=== PATIENT | female | born 2000 | race African-American/Black ===

== ENCOUNTER 2022-02-06 01:35 | Day surgery (SDC) | payer BC, SELFPAY ==
--- NOTE | 2022-01-30 16:32 | SUR.PREOP ---
Report to the Outpatient Waiting Room, entrance under the green pavilion located off [facility], at time 0600 on date 02/06/22. OR Time: 0730. - You and your visitor will be asked a series of questions to screen for COVID 19 for your protection. - Only one visitor is allowed at this time. - The patient visitor is requested to leave or wait in car when not with patient. - A mask is required within the hospital. Patients may have clear liquids (water, carbonated beverages, clear teas, apple juice) until 3 hours prior to surgery with a maximum of 20 ounces. - NO CLEAR LIQUIDS AFTER 0430 - No food from midnight until time of surgery - Infants may have breast milk until 4 hours before surgery, infant formula 6 hours prior to surgery. - Children will be allowed to drink immediately following surgery. If applicable, please bring a bottle or sippy cup to assist with drinking. Juice, water, soda, and popsicles are readily available. For infants on formula, please bring formula the day of surgery. Pacifiers are allowed. Take the following medications with a SIP of water the morning of surgery: Medications to discontinue per physician Date to take last dose Please no make-up, nail turkish, hairspray, perfume, deodorant, or body powder the day of surgery. No jewelry (including any body piercings) or valuables the day of surgery, leave them at home. Please take a shower or bath the night before, or the morning of, surgery with an antibacterial soap. Wear comfortable, loose fitting clothing. Children are encouraged to wear pajamas. - Jewelry must be removed prior to entering the operating room. Rings and piercings that are not removed may be cut off. - The hospital will not accept responsibility for valuables. - Please leave all valuables, including medications, at home the day of surgery. If you are going home after surgery, a licensed stock driver must drive you home. - NO public transportation without another adult. - We recommend that an adult stay with you for 24 hours following discharge. - We also recommend that you do not drive, make important decision, drink alcoholic beverages, or take any drugs that were not prescribed by your health care provider for at least 24 hours after your discharge time. For Pediatric surgeries, we recommend two adults accompany the child home (only one inside the building at this time). Follow any additional instructions given to you from your surgeon. If you or anyone in your household have experienced Covid symptoms in the past week, please notify your surgeon or the nurse liaison at the phone number below for possible testing. Telephone instructions given to TITI PADILLA and asked if any additional questions and then verbalized understanding. Patient advised to call surgeon office or pre surgery nurse liaison [phone] if any additional questions.
[2022-01-30 16:42] VITALS: BMI 21.9
[2022-02-06] MEDS: ACETAMINOPHEN 500 MG TABLET 1000 MG PO (06:17)
[2022-02-06 06:27] VITALS: BP 112/69; PULSE 72; RESP 16; TEMP 37.1; O2SAT 100; BMI 20.8
[2022-02-06] MEDS: LACTATED RINGERS 1,000 ML 30 ML IV CONT (06:50)
--- NOTE | 2022-02-06 06:59 | WPDANESEPPF ---
Anes - Initial Pre Proc Eval Procedure: Operation Date: 02/06/22 07:30 Proposed Procedures p Loop Electrical Excision Procedure - Duane Rosas MD Date/Time: 02/06/22 06:59 Surgeon: Duane Rosas MD Pre Op Diagnosis: DEANNA 2 Patient Data Age: 21 Gender: F Height: 1.63 m Weight: 55 kg Last Vital Signs Temp 37.1 C 02/06/22 06:27 Pulse 72 02/06/22 06:27 Resp 16 02/06/22 06:27 BP 112/69 02/06/22 06:27 Pulse Ox 100 02/06/22 06:27 Allergies Allergy/AdvReac Type Severity Reaction Status Date / Time No Known Allergies Allergy Verified 02/06/22 06:07 Home Medications Medication Instructions Recorded Confirmed Type ergocalciferol (vitamin D2) 1,250 1,250 mcg PO WEEKLY #12 cap 12/29/21 01/30/22 Rx mcg (50,000 unit) capsule Patient hx anesthesia problems: none Family hx anesthesia problems: none Results Review: All pre-operative results and documents have been reviewed as part of the pre-operative evaluation. [facility] Past Medical History Medical History Anxiety Depression Social History Social History Years smoked: 5 Smoking status: Current every day smoker Tobacco type: cigarettes and e-cigarettes/vaping Alcohol intake: current Substance use: current Substance use type: marijuana Other substance usage details: MARIJUANA DAILY Spiritual care concerns: No Anes - Eval Final PreProcedure Day of Procedure 02/06/22 06:59 Patient weight: normal Heart: regular rate and rhythm Lungs: clear to auscultation Airway: Mallampati scale class 1 Neurological: alert and oriented Last oral intake: >/= 8 hours ASA classification: II Emergent: no Anesthetic plan: proceed Anesthesia type and monitoring: general GIVS and standard monitoring Results Review: All pre-operative results and documents have been reviewed as part of the pre-operative evaluation. Informed Consent: The patient's anesthetic plan and its attendant risks and benefits were discussed with the patient/family/POA. Questions were solicited and answers provided to the satisfaction of the patient/family/POA.
--- NOTE | 2022-02-06 07:16 | PM.IMHP ---
H&P: HPI History of Present Illness Date/Time: 02/06/22 07:16 Patient scheduled for LEEP due colposcopy biopsy with ECC CIN2. Cervical biopsy CIN1. Chief Complaint: CIN2 on ECC Review of Systems Review of Systems: All systems reviewed & are unremarkable except as noted in HPI and below Cardiovascular: Cardiovascular: Reports no additional cardiovascular complaints, Denies chest pain and Denies dyspnea Respiratory: Respiratory: Reports no additional respiratory complaints and Denies dyspnea Gastrointestinal: Gastrointestinal: Reports abdominal pain, Denies change in bowel habits, Denies diarrhea, Denies nausea and Denies vomiting Genitourinary: Genitourinary: Reports pelvic pain Musculoskeletal: Musculoskeletal: Reports back pain Integumentary/Breasts: Skin/Breast: Reports system reviewed and no additional complaints, except as docu Neurologic: Reports system reviewed and no additional complaints, except as documented PMFSH Past Medical History Medical History Anxiety Depression Social History Social History Years smoked: 5 Smoking status: Current every day smoker Tobacco type: cigarettes and e-cigarettes/vaping Alcohol intake: current Substance use: current Substance use type: marijuana Other substance usage details: MARIJUANA DAILY Spiritual care concerns: No Meds Home Medications and Allergies Home Medications Medication Instructions Recorded Confirmed Type ergocalciferol (vitamin D2) 1,250 1,250 mcg PO WEEKLY #12 cap 12/29/21 01/30/22 Rx mcg (50,000 unit) capsule Allergies Allergy/AdvReac Type Severity Reaction Status Date / Time No Known Allergies Allergy Verified 02/06/22 06:07 Vital Signs Vital Signs - 24 hr 02/06/22 06:27 Temperature 98.7 F Pulse Rate 72 Respiratory Rate 16 Blood Pressure 112/69 Pulse Oximetry 100 Exam Const: Orientation/consciousness: oriented to person and oriented to place HENMT: Head: normal to inspection Eyes: General: appearance normal, both eyes and all related structures Resp: Effort & Inspection: normal respiratory effort Auscultation: clear to auscultation bilaterally Cardio: Rate: regular rate Rhythm: regular rhythm GI: Inspection: normal to inspection GI Palp: No Rebound tenderness present : External Female Exam: normal external appearance Speculum Exam - Vagina: normal appearance of the vagina Speculum Exam - Cervix: normal appearance of the cervix Bimanual Exam- Adnexa, other: normal adnexae Neuro: General: oriented to person and oriented to place Cognition (Neuro): normal cognition Extrem: General: normal to inspection Psych: Appearance: grossly normal and well kempt Assessment and Plan Assessment and plan (1) DEANNA II (cervical intraepithelial neoplasia II): Code(s): N87.1 - Moderate cervical dysplasia Status: Acute Assessment and Plan: Plan for LEEP.
--- NOTE | 2022-02-06 07:19 | WPDHPUPDATE1 ---
History and Physical Update Update Date/Time: 02/06/22 07:19 History and Physical has been reviewed, including an updated exam of the patient. There are NO changes in the patient's condition. Risks, benefits, and alternatives have been discussed and questions answered. Patient agrees to proceed with procedure.
[2022-02-06] MEDS: ceFAZolin 2 GM/D5W 50 ML 2 GM/50 ML BAG IVPB (07:42)
[2022-02-06] MEDS: LIDO 1%/EPINEPHRINE 1:100,000 50 ML VIAL 10 ML INFILTRATE (07:53)
[2022-02-06 08:07] VITALS: BP 91/44; PULSE 63; RESP 16; O2SAT 97
--- NOTE | 2022-02-06 08:28 | W.PM.PROC2 ---
Procedure Note - Detailed Date of Procedure 02/06/22 Pre-op Diagnosis DEANNA 2 Post-op Diagnosis Same Procedure Performed Loop electrosurgical excision procedure. Surgeon Duane Rosas MD Anesthesia MAC and Local Indications CIN2 on LEEP Findings mild decreased uptake of Lugols at 12 Description of Procedure The patient was taken to the OR where adequate IV sedation was administered. She was then prepped and draped in the usual sterile fashion and placed in the dorsal lithotomy position. A Graves speculum was placed in the vagina. Lugol?s solution was painted along the entire cervix and vaginal wall. Areas of non-uptake were noted to be around the entire squamocolumnar junction and at 12 o clock. 10 cc of lidocaine with epinephrine was injected at surgical site. The large loop electrode was used to remove the transformation zone. An area of hypopigmentation at 12 that was not included in first pass was excised. The first pass was marked by a cut at 12. The smallest loop electrode was used to perform an endocervical pass. The specimens will be sent to pathology. The bed of the excised cervical tissue along the cervix was cauterized using the roller ball. Monsel's solution was applied. Hemostasis was noted. All instruments were removed from vagina at this point. The patient tolerated the procedure well without complication and was taken to the recovery room in stable condition. Estimated Blood Loss 5 Drains No Packing No Pathology Yes (1. Ectocervical LEEP pass and ) Complications No immediate complications Condition Stable Disposition Same day [facility] Billing Surgery - Charge Forward: Surgery Billing
[2022-02-06 08:30] VITALS: BP 99/63; PULSE 48; RESP 16; O2SAT 100
[2022-02-06 08:50] VITALS: BP 119/63; PULSE 52; RESP 14
== END 2022-02-06 09:02 | disposition home or self-care (01) ==
PROVIDERS: Visit Provider Obstetrics & Gynecology
PROC: 0UBC7ZZ Excision of Cervix, Via Natural or Artificial Opening (ICD-10-PCS; CPT 57522; principal; 2022-02-06 07:30)
DX: N87.1 Moderate cervical dysplasia (principal); F41.8 Other specified anxiety disorders; F17.290 Nicotine dependence, other tobacco product, uncomplicated; F12.90 Cannabis use, unspecified, uncomplicated
CPT/HCPCS: 57522; 88305; 88307; A9270; J0690; J1100; J1885; J2250; J2405; J2704; J3010; J7120